=== PATIENT | male | born 2000 | race Caucasian/White ===

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

== ENCOUNTER 2020-08-31 14:46 | Emergency (ER) | payer OTHER ==
[2020-08-31 15:21] VITALS: BP 119/65; PULSE 73; RESP 18; TEMP 98.1
--- NOTE | 2020-08-31 15:30 | ED ---
General Adult HPI - General Chief complaint: Extremity Problem,Nontraumatic Stated complaint: Rib/Finger Injury Time Seen by Provider: 08/31/20 15:24 Source: patient, RN notes reviewed Mode of arrival: ambulatory Limitations: no limitations - History of Present Illness Initial comments: 20-year-old male presents to the emergency room for multiple complaints. Patient states his right fourth digit has been hurting for 2 weeks now. States he was playing football and injured it. States it is painful to flex the right fourth digit and it is tender to touch. Patient is also complaining of right rib pain. Patient states he was tackled to the ground yesterday had some right rib pain. He decided to play football again today and was tackled again and feels like he further injured his right ribs. He denies any back pain or abdominal pain. He did not hit his head or neck. She denies any bruising.Patient has no other complaints at this time including shortness of breath, chest pain, abdominal pain, nausea or vomiting, headache, or visual changes. - Related Data Home Medications Medication Instructions Recorded Confirmed Ibuprofen [Motrin Ib] 400 mg PO Q6H PRN 01/03/19 01/03/19 Previous Rx's Medication Instructions Recorded Sulfamethox-Tmp 800-160Mg [Bactrim 1 tab PO Q12HR #14 tab 01/03/19 DS 800-160 mg] Sulfamethox-Tmp 800-160Mg [Bactrim 1 tab PO Q12HR #14 tab 01/03/19 DS 800-160 mg] Cephalexin [Keflex] 500 mg PO Q6HR 5 Days #20 cap 01/15/19 Sulfamethox-Tmp 800-160Mg [Bactrim 1 each PO Q12HR #14 tab 01/15/19 Ds] Butenafine HCl [Lotrimin Ultra] 1 applic TOPICAL BID #12 gm 05/23/19 Ofloxacin 0.3% Ophth Soln [Ocuflox 10 drops RIGHT EAR BID #1 bottle 05/23/19 Ophth Soln] Sulfamethox-Tmp 800-160Mg [Bactrim 1 each PO Q12HR #20 tab 05/23/19 Ds] Allergies Allergy/AdvReac Type Severity Reaction Status Date / Time No Known Allergies Allergy Verified 05/23/19 22:10 Review of Systems ROS Statement: Those systems with pertinent positive or pertinent negative responses have been documented in the HPI. ROS Other: All systems not noted in ROS Statement are negative. Past Medical History Past Medical History: No Reported History Additional Past Medical History / Comment(s): skin condition. History of Any Multi-Drug Resistant Organisms: MRSA Date of last positivie culture/infection: 2010 MDRO Source:: Knee Past Surgical History: Ear Surgery Additional Past Surgical History / Comment(s): ear, cyst removal Past Psychological History: No Psychological Hx Reported Smoking Status: Never smoker Past Alcohol Use History: Occasional Past Drug Use History: Marijuana General Exam - General Exam Comments Initial Comments: Right hand: Patient has pain with palpation to the palmar aspect of the proximal phalanx of the right fourth digit as well as palmar aspect of the fourth m etacarpal head. Patient is able to flex finger to 90 however it is painful. Radial pulse is 2+. Capillary refill less than 2 seconds in the right fourth digit and right upper extremity. Sensation intact. Limitations: no limitations General appearance: alert, in no apparent distress Head exam: Present: atraumatic, normocephalic, normal inspection Eye exam: Present: normal appearance, PERRL, EOMI. Absent: scleral icterus, conjunctival injection, periorbital swelling ENT exam: Present: normal exam, mucous membranes moist Neck exam: Present: normal inspection, full ROM. Absent: tenderness, meningismus, lymphadenopathy Respiratory exam: Present: normal lung sounds bilaterally, chest wall tenderness (Patient has right sided anterior rib tenderness around rib 8). Absent: respiratory distress, wheezes, rales, rhonchi, stridor, other (No external signs of trauma) Cardiovascular Exam: Present: regular rate, normal rhythm, normal heart sounds. Absent: systolic murmur, diastolic murmur, rubs, gallop, clicks GI/Abdominal exam: Present: soft, normal bowel sounds. Absent: distended, tenderness (No abdominal tenderness), guarding, rebound, rigid Back exam: Absent: CVA tenderness (R), CVA tenderness (L), vertebral tenderness (No thoracic or lumbar spine tenderness) Course Vital Signs 08/31/20 15:16 Temperature 98.1 F Pulse Rate 73 Respiratory 18 Rate Blood Pressure 119/65 O2 Sat by Pulse 100 Oximetry Medical Decision Making - Medical Decision Making HPI and physical exam as documented. No physical signs of trauma. No contusions or ecchymosis. No abdominal pain or CVA tenderness. No spine tenderness. He does have tenderness over the right anterolateral ribs without step-off. X-ray of the ribs shows a normal chest and right rib exam, no evidence of fracture. Hand x-ray shows a normal right hand exam. At this time recommend Motrin and Tylenol for pain. Recommend following up with primary care. He will also be given orthopedic follow-up for finger pain. He will return here for any worsening symptoms. Disposition Clinical Impression: Finger pain, right, Rib pain Disposition: HOME SELF-CARE Condition: Good Instructions (If sedation given, give patient instructions): Rib Contusion (ED), Finger Sprain (ED) Additional Instructions: Please take Motrin and Tylenol for pain. Please follow-up with orthopedics as necessary. Follow-up with primary care as well. Return to the emergency room for any worsening symptoms. Is patient prescribed a controlled substance at d/c from ED?: No Referrals: Kristin Uriarte MD [REFERRING] - 1-2 days Jam Peres DO [Doctor of Osteopathic Medicine] - 1-2 days Time of Disposition: 16:04
--- NOTE | 2020-08-31 15:42 | XR ---
EXAMINATION TYPE: XR ribs RT w pa chest xray DATE OF EXAM: 08/31/2020 COMPARISON: NONE HISTORY: Rib pain TECHNIQUE: 5 views FINDINGS: Heart and mediastinum are normal. Lungs are clear. Diaphragm is normal. Bony thorax is inta ct. The right ribs appear intact. There is no pleural effusion or pneumothorax. IMPRESSION: Normal chest and right rib exam.
--- NOTE | 2020-08-31 15:44 | XR ---
EXAMINATION TYPE: XR hand complete RT DATE OF EXAM: 08/31/2020 COMPARISON: NONE HISTORY: Pain TECHNIQUE: 3 views FINDINGS: Metacarpals are intact. I see no fracture nor dislocation. Carpal bones are intact. Joint s paces are normal. IMPRESSION: Normal right hand exam.
== END 2020-08-31 16:13 | disposition home or self-care (01) ==
LOC: EC 14:46
DX: M79.644 Pain in right finger(s) (principal); R07.81 Pleurodynia
CPT/HCPCS: 99283

== ENCOUNTER 2023-03-07 14:13 | Emergency (ER) | payer OTHER ==
[2023-03-07 14:21] VITALS: TEMP 98
--- NOTE | 2023-03-07 15:12 | ED ---
Skin/Abscess/FB HPI - General Chief complaint: Skin/Abscess/Foreign Body Stated complaint: skin infection Time Seen by Provider: 03/07/23 14:36 Source: patient, RN notes reviewed, old records reviewed Mode of arrival: ambulatory Limitations: no limitations - History of Present Illness Initial comments: 22-year-old well-appearing male presents to the emergency room with a rash to his right hand, wrist and dorsum of the penis for the past week. Denies any pain or itching. States he believes he has ringworm. Initially started on the hand and then on his penis. 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 Denies any fevers. MD complaint: rash -: days(s) Location: R hand (wrist and dorsum of penis) Severity scale (1-10): 0 Associated symptoms: denies other symptoms Treatments Prior to Arrival: none - Related Data Home Medications Medication Instructions Recorded Confirmed Ibuprofen [Motrin Ib] 400 mg PO Q6H PRN 01/03/19 01/03/19 Previous Rx's Medication Instructions Recorded Sulfamethox-Tmp 800-160Mg [Bactrim 1 tab PO Q12HR #14 tab 01/03/19 DS 800-160 mg] Sulfamethox-Tmp 800-160Mg [Bactrim 1 tab PO Q12HR #14 tab 01/03/19 DS 800-160 mg] Cephalexin [Keflex] 500 mg PO Q6HR 5 Days #20 cap 01/15/19 Sulfamethox-Tmp 800-160Mg [Bactrim 1 each PO Q12HR #14 tab 01/15/19 Ds] Butenafine HCl [Lotrimin Ultra] 1 applic TOPICAL BID #12 gm 05/23/19 Ofloxacin 0.3% Ophth Soln [Ocuflox 10 drops RIGHT EAR BID #1 bottle 05/23/19 Ophth Soln] Sulfamethox-Tmp 800-160Mg [Bactrim 1 each PO Q12HR #20 tab 05/23/19 Ds] Clotrimazole Cream [Lotrimin Cream] 1 applic TOPICAL BID 28 Days #15 gm 03/07/23 Allergies Allergy/AdvReac Type Severity Reaction Status Date / Time No Known Allergies Allergy Verified 03/07/23 14:21 Review of Systems ROS Statement: Those systems with pertinent positive or pertinent negative responses have been documented in the HPI. ROS Other: All systems not noted in ROS Statement are negative. Past Medical History Past Medical History: No Reported History Additional Past Medical History / Comment(s): skin condition. History of Any Multi-Drug Resistant Organisms: MRSA Date of last positivie culture/infection: 2010 MDRO Source:: Knee Past Surgical History: Ear Surgery Additional Past Surgical History / Comment(s): ear, cyst removal Past Psychological History: No Psychological Hx Reported Smoking Status: Current every day smoker Past Alcohol Use History: Occasional Past Drug Use History: Marijuana General Exam Limitations: no limitations General appearance: alert, in no apparent distress Head exam: Present: atraumatic Eye exam: Present: normal appearance. Absent: scleral icterus, conjunctival injection, periorbital swelling Neck exam: Absent: meningismus Respiratory exam: Absent: respiratory distress, accessory muscle use Cardiovascular Exam: Present: regular rate Neurological exam: Present: alert, oriented X3, normal gait Psychiatric exam: Present: normal affect, normal mood Skin exam: Present: warm, dry, rash (2cm circular rash right wrist and 1cm circular rash base of first metacarpal, slight macular rash dorsum of penis) Course Vital Signs 03/07/23 03/07/23 03/07/23 14:15 14:20 16:32 Temperature 98.0 F Pulse Rate 95 68 80 Respiratory 18 16 18 Rate Blood Pressure 117/61 130/80 132/78 O2 Sat by Pulse 100 98 100 Oximetry Medical Decision Making - Medical Decision Making Was pt. sent in by a medical professional or institution (, PA, [facility], urgent care, hospital, or [facility]...) When possible be specific @ -No Did you speak to anyone other than the patient for history (EMS, parent, family, police, friend...)? What history was obtained from this source @ -No Did you review nursing and triage notes (agree or disagree)? Why? @ -I reviewed and agree with nursing and triage notes Were old charts reviewed (outside hosp., previous admission, EMS record, old EKG, old radiological studies, urgent care reports/EKG's, [facility] records)? Report findings @ -No old charts were reviewed Differential Diagnosis (chest pain, altered mental status, abdominal pain women, abdominal pain men, vaginal bleeding, weakness, fever, dyspnea, syncope, headache, dizziness, GI bleed, back pain, seizure, CVA, palpatations, mental health, musculoskeletal)? @ -Ringworm, eczema, atopic dermatitis, epidermolysis bullosa EKG interpreted by me (3pts min.). @ -n/a X-rays interpreted by me (1pt min.). @ -None done CT interpreted by me (1pt min.). @ -None done U/S interpreted by me (1pt. min.). @ -None done What testing was considered but not performed or refused? (CT, X-rays, U/S, labs)? Why? @ -None What meds were considered but not given or refused? Why? @ -None Did you discuss the management of the patient with other professionals (professionals i.e. Dr., PA, [facility], lab, RT, psych nurse, social group worker, old coin dealer, teacher, control systems drafting officer, clinical case manager)? Give summary @ -No Was smoking cessation discussed for >3mins.? @ -No Was critical care preformed (if so, how long)? @ -No Were there social determinants of health that impacted care today? How? (Homelessness, low income, unemployed, alcoholism, drug addiction, transportation, low edu. Level, literacy, decrease access to med. care, group home, rehab)? @ -No Was there de-escalation of care discussed even if they declined (Discuss DNR or withdrawal of care, Hospice)? DNR status @ -No What co-morbidities impacted this encounter? (DM, HTN, Smoking, COPD, CAD, Cancer, CVA, ARF, Chemo, Hep., AIDS, mental health diagnosis, sleep apnea, morbid obesity)? @ -epidermolysis bullosa Was patient admitted / discharged? Hospital course, mention meds given and route, prescriptions, significant lab abnormalities, going to OR and other pertinent info. @ -Discharged 22-year-old well-appearing male presents to the emergency room with a rash to his right hand, wrist and dorsum of the penis for the past week. Denies any pain or itching. States he believes he has ringworm. Initially started on the hand and then on his penis. 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 Denies any fevers. Patient prescribed clotrimazole twice a day for 4 weeks. Directed to keep the rash covered and follow-up with dermatology this week. Patient is agreeable to this plan of care. Case discussed with Dr. Hand Undiagnosed new problem with uncertain prognosis? @ -No Drug Therapy requiring intensive monitoring for toxicity (Heparin, Nitro, Insulin, Cardizem)? @ -No Were any procedures done? @ -No Diagnosis/symptom? @ -Tinea corpus Acute, or Chronic, or Acute on Chronic? @ -Acute Uncomplicated (without systemic symptoms) or Complicated (systemic symptoms)? @ -Uncomplicated Side effects of treatment? @ -No Exacerbation, Progression, or Severe Exacerbation? @ -No Poses a threat to life or bodily function? How? (Chest pain, [place], [place], pneumonia, PE, COPD, DKA, ARF, appy, cholecystitis, CVA, Diverticulitis, Homicidal, Suicidal, threat to staff... and all critical care pts) @ -No Disposition Clinical Impression: Tinea corporis Disposition: HOME SELF-CARE Condition: Good Instructions (If sedation given, give patient instructions): Tinea Corporis (ED) Additional Instructions: Use antifungal cream twice a day for the next 4 weeks. Keep areas covered to prevent spread. Follow-up with dermatology this week. Return to emergency room with any new or concerning symptoms. Prescriptions: Clotrimazole Cream [Lotrimin Cream] 1 applic TOPICAL BID 28 Days #15 gm Is patient prescribed a controlled substance at d/c from ED?: No Referrals: Kristin Uriarte MD [Primary Care Provider] - 1-2 days Deny Gutierrez MD [STAFF PHYSICIAN] - 1-2 days Time of Disposition: 15:27
[2023-03-07 16:34] VITALS: BP 132/78; PULSE 80; RESP 18
== END 2023-03-07 16:33 | disposition home or self-care (01) ==
LOC: EC 14:13
DX: B35.4 Tinea corporis (principal); F17.200 Nicotine dependence, unspecified, uncomplicated; F12.90 Cannabis use, unspecified, uncomplicated
CPT/HCPCS: 99282

== ENCOUNTER 2023-04-14 17:56 | Emergency (ER) | payer OTHER ==
[2023-04-14 18:00] VITALS: BP 118/76; PULSE 87; RESP 18; TEMP 98.4
--- NOTE | 2023-04-14 18:14 | ED ---
General Adult HPI - General Chief complaint: Recheck/Abnormal Lab/Rx Stated complaint: infection on hand Time Seen by Provider: 04/14/23 18:03 Source: patient Mode of arrival: ambulatory Limitations: no limitations - History of Present Illness Initial comments: Patient is a 22-year-old male who presents the emergency department for evaluation of rash.He has rash on dorsum of hand, anterior wrist, and penis. Patient denies pain states his little itchy. Patient was diagnosed with ringworm in our emergency department last month. States rash improved with antifungal cream but did not fully go away. Patient denies fever, chills. Denies urinary symptoms, penile discharge, testicular pain, lesions. No concern process or transmitted infections. Patient has a history of epidermolysis bullosa states this is not similar rash. - Related Data Home Medications Medication Instructions Recorded Confirmed Ibuprofen [Motrin Ib] 400 mg PO Q6H PRN 01/03/19 01/03/19 Previous Rx's Medication Instructions Recorded Sulfamethox-Tmp 800-160Mg [Bactrim 1 tab PO Q12HR #14 tab 01/03/19 DS 800-160 mg] Sulfamethox-Tmp 800-160Mg [Bactrim 1 tab PO Q12HR #14 tab 01/03/19 DS 800-160 mg] Cephalexin [Keflex] 500 mg PO Q6HR 5 Days #20 cap 01/15/19 Sulfamethox-Tmp 800-160Mg [Bactrim 1 each PO Q12HR #14 tab 01/15/19 Ds] Butenafine HCl [Lotrimin Ultra] 1 applic TOPICAL BID #12 gm 05/23/19 Ofloxacin 0.3% Ophth Soln [Ocuflox 10 drops RIGHT EAR BID #1 bottle 05/23/19 Ophth Soln] Sulfamethox-Tmp 800-160Mg [Bactrim 1 each PO Q12HR #20 tab 05/23/19 Ds] Clotrimazole Cream [Lotrimin Cream] 1 applic TOPICAL BID 28 Days #15 gm 03/07/23 Clotrimazole [Lotrimin AF] 1 applic TOPICAL BID #24 gm 04/14/23 Allergies Allergy/AdvReac Type Severity Reaction Status Date / Time No Known Allergies Allergy Verified 04/14/23 18:00 Review of Systems ROS Statement: Those systems with pertinent positive or pertinent negative responses have been documented in the HPI. ROS Other: All systems not noted in ROS Statement are negative. Past Medical History Past Medical History: No Reported History Additional Past Medical History / Comment(s): skin condition. History of Any Multi-Drug Resistant Organisms: MRSA Date of last positivie culture/infection: 2010 MDRO Source:: Knee Past Surgical History: Ear Surgery Additional Past Surgical History / Comment(s): ear, cyst removal Past Psychological History: No Psychological Hx Reported Smoking Status: Current every day smoker Past Alcohol Use History: Occasional Past Drug Use History: Marijuana General Exam Limitations: no limitations General appearance: alert Respiratory exam: Present: normal lung sounds bilaterally. Absent: respiratory distress, wheezes, rales, rhonchi, stridor Cardiovascular Exam: Present: regular rate, normal rhythm, normal heart sounds. Absent: systolic murmur, diastolic murmur, rubs, gallop, clicks Neurological exam: Present: alert Skin exam: Present: warm, dry, intact, normal color, rash (Papules with central clearing at base of right first metacarpal dorsally approximately 1 cm, similar at right anterior wrist 2 cm) Course Vital Signs 04/14/23 17:58 Temperature 98.4 F Pulse Rate 87 Respiratory 18 Rate Blood Pressure 118/76 O2 Sat by Pulse 99 Oximetry Medical Decision Making - Medical Decision Making Was pt. sent in by a medical professional or institution ([facility], DYE JIG OPERATOR, urgent care, hospital, or senior care...) When possible be specific @ -No Did you speak to anyone other than the patient for history (EMS, parent, family, police, friend...)? What history was obtained from this source @ -No Did you review nursing and triage notes (agree or disagree)? Why? @ -I reviewed and agree with nursing and triage notes Were old charts reviewed (outside hosp., previous admission, EMS record, old EKG, old radiological studies, urgent care reports/EKG's, senior care records)? Report findings @ -No old charts were reviewed Differential Diagnosis (chest pain, altered mental status, abdominal pain women, abdominal pain men, vaginal bleeding, weakness, fever, dyspnea, syncope, headache, dizziness, GI bleed, back pain, seizure, CVA, palpatations, mental health)? @ -tinea corporis, allergic reaction, cellulitis.This list is not meant to be all-inclusive EKG interpreted by me (3pts min.). @ -As above X-rays interpreted by me (1pt min.). @ -None done CT interpreted by me (1pt min.). @ -None done U/S interpreted by me (1pt. min.). @ -None done What testing was considered but not performed or refused? (CT, X-rays, U/S, labs)? Why? @ -None What meds were considered but not given or refused? Why? @ -None Did you discuss the management of the patient with other professionals (professionals i.e. DrMigue, PA, DYE JIG OPERATOR, lab, RT, psych nurse, rn social services, senior software architect, teacher, bomb squad officer, ed case manager)? Give summary @ -No Was smoking cessation discussed for >3mins.? @ -No Was critical care preformed (if so, how long)? @ -No Were there social determinants of health that impacted care today? How? (Homelessness, low income, unemployed, alcoholism, drug addiction, transportation, low edu. Level, literacy, decrease access to med. care, snf, rehab)? @ -No Was there de-escalation of care discussed even if they declined (Discuss DNR or withdrawal of care, Hospice)? DNR status @ -No What co-morbidities impacted this encounter? (DM, HTN, Smoking, COPD, CAD, Cancer, CVA, ARF, Chemo, Hep., AIDS, mental health diagnosis, sleep apnea, morbid obesity)? @ -None Was patient admitted / discharged? Hospital course, mention meds given and route, prescriptions, significant lab abnormalities, going to OR and other pertinent info. @ -Discharged with antifungal cream. Patient declines evaluation of rash on penis. He denies fever, urinary symptoms. Denies concern for sexually transmitted infections. States he has the same rash on his hand and wrist. Patient referred to dermatology again. He is encouraged to follow up this time.. Undiagnosed new problem with uncertain prognosis? @ -[o] Drug Therapy requiring intensive monitoring for toxicity (Heparin, Nitro, Insuli n, Cardizem)? @ -[o] Were any procedures done? @ -[o] Diagnosis/symptom? @ Dermatitis Acute, or Chronic, or Acute on Chronic? @ -acute Uncomplicated (without systemic symptoms) or Complicated (systemic symptoms)? @ Uncomplicated Side effects of treatment? @ -No Exacerbation, Progression, or Severe Exacerbation? @ -No Poses a threat to life or bodily function? How? (Chest pain, [place], VT, pneumonia, PE, COPD, DKA, ARF, appy, cholecystitis, CVA, Diverticulitis, Homicidal, Suicidal, threat to staff... and all critical care pts) @ -No Dr. Vega is my attending Disposition Clinical Impression: Dermatitis Disposition: HOME SELF-CARE Condition: Good Instructions (If sedation given, give patient instructions): Tinea Corporis (ED) Additional Instructions: Apply cream twice daily. It is important to follow-up with dermatology which you are referred to again. Return to the emergency department experience new, concerning, or worsening symptoms. Prescriptions: Clotrimazole [Lotrimin AF] 1 applic TOPICAL BID #24 gm Is patient prescribed a controlled substance at d/c from ED?: No Referrals: Kristin Uriarte MD [Primary Care Provider] - 1-2 days Deny Gutierrez MD [STAFF PHYSICIAN] - 1-2 days
== END 2023-04-14 18:35 | disposition home or self-care (01) ==
LOC: EC 17:56
DX: L30.9 Dermatitis, unspecified (principal); F12.90 Cannabis use, unspecified, uncomplicated; F17.200 Nicotine dependence, unspecified, uncomplicated
CPT/HCPCS: 99283

== ENCOUNTER → 2023-07-19 | Outpatient (CLI) | payer OTHER ==
--- NOTE | 2023-07-19 12:11 | MR ---
EXAMINATION TYPE: MR knee LT wo con DATE OF EXAM: 07/19/2023 COMPARISON: None HISTORY: Left knee pain x 3-4 weeks, injured playing basketball TECHNIQUE: Multiplanar, multisequence imaging of the knee is performed without IV contrast. FINDINGS: MEDIAL MENISCUS: Anterior and posterior horns are intact without tear. LATERAL MENISCUS: Anterior and posterior horns are intact without tear. CRUCIATE LIGAMENTS: The anterior and posterior cruciate ligaments are intact and unremarkable. COLLATERAL LIGAMENTS: The medial collateral ligament and lateral collateral ligament complex are inta ct and unremarkable. EXTENSOR MECHANISM: Visualized quadriceps and patellar tendons are intact. EFFUSION: No significant suprapatellar joint effusion. POPLITEAL CYST: No popliteal/clark cyst. TRICOMPARTMENT SPACES: Intact CARTILAGE: Intact BONE MARROW SIGNAL: Small area of focal bone contusion lateral femoral condyle anteriorly. No evidenc e for displaced fracture. OTHER: No additional significant abnormality is appreciated. IMPRESSION: Small area of focal bone contusion lateral femoral condyle anteriorly. No evidence for displaced frac ture.
== END | disposition home or self-care (01) ==
LOC: RADMRIMAIN 11:11
PROVIDERS: ATTEND Orthopaedic Surgery
DX: S80.02XA Contusion of left knee, initial encounter (principal)